=== PATIENT | female | born 1990 | race Caucasian/White ===

== ENCOUNTER → 2016-06-27 | Outpatient (REF) | payer OTHER ==
[2016-06-27 15:47] LABS: PERCENT SATURATION 14.7 % (13.2-37.4); TOTAL IRON BINDING CAPACITY 339 UG/DL (250-450)
[2016-06-27 22:00] LABS: CONTROL LINE MONO INT CTR LINE PRESENT
[2016-06-30 00:07] LABS: ENDOMYSIAL ABY IgA Negative (Negative)
== END | disposition home or self-care (01) ==
LOC: M LAB REF 12:02
PROVIDERS: ATTEND Internal Medicine
DX: R19.5 Other fecal abnormalities (principal); J03.90 Acute tonsillitis, unspecified; R59.0 Localized enlarged lymph nodes

== ENCOUNTER 2016-09-06 14:50 | Emergency (ER) | payer OTHER ==
[~2016-09-06] VITALS: Ht 157.5 cm; Wt 70.3 kg
[2016-09-06 14:50] VITALS: BP 138/86
[2016-09-06] MEDS ORDERED: NAPROXEN 250 MG TAB PO ONE (15:15)
[2016-09-06] MEDS ORDERED: CEPHALEXIN 500 MG CAP PO ONE (15:15)
[2016-09-06] MEDS ORDERED: NAPR500T PO (15:16)
[2016-09-06] MEDS ORDERED: KEFL500C7 PO (15:16)
[2016-09-06] MEDS ORDERED: BACITRACIN OINT 30GM TOP ONE (15:30)
== END 2016-09-06 15:43 | disposition home or self-care (01) ==
LOC: M ED 15:24
DX: S61.011A Laceration without foreign body of right thumb without damage to nail, initial encounter (principal); W45.8XXA Other foreign body or object entering through skin, initial encounter; Y92.018 Other place in single-family (private) house as the place of occurrence of the external cause; Y93.G1 Activity, food preparation and clean up; Y99.8 Other external cause status

== ENCOUNTER → 2016-11-28 | Outpatient (CLI) | payer OTHER ==
[~2016-11-28] VITALS: Ht 157.5 cm; Wt 70.8 kg
[~2016-11-28] MED LIST: KEFL500C17 PO; NAPR500T PO; NS 1,000 ML IV ONE
--- NOTE | 2016-11-28 10:58 | ROOR ---
Patient Name: Delmis Ayon Procedure Date: 11/28/2016 10:37 AM Date of : 1990 Age: 26 Room: [facility] Gender: Female Note Status: Finalized Procedure: Total Colonoscopy to Cecum + ileoscopy Indications: Rectal bleeding, Change in bowel habits Providers: Gregorio Luque MD Referring MD: Love Bah DO Requesting Provider: Medicines: Monitored Anesthesia Care Complications: No immediate complications. Procedure: Pre-Anesthesia Assessment: - The heart rate, respiratory rate, oxygen saturations, blood pressure, adequacy of pulmonary ventilation, and response to care were monitored throughout the procedure. The Colonoscope was introduced through the anus and advanced to the cecum, identified by appendiceal orifice and ileocecal valve. The colonoscopy was performed without difficulty. The patient tolerated the procedure well. The quality of the bowel preparation was excellent. Findings: The perianal and digital rectal examinations were normal. Non-bleeding internal hemorrhoids were found during retroflexion. The hemorrhoids were small and Grade I (internal hemorrhoids that do not prolapse). No other significant abnormalities were identified in a careful examination of the remainder of the colon. The terminal ileum appeared normal. The exam was otherwise without abnormality. Impression: - Non-bleeding internal hemorrhoids. - The examined portion of the ileum was normal. - The examination was otherwise normal. - No specimens collected. - The exam was otherwise normal to the cecum. Recommendation: - Patient has a contact number available for emergencies. The signs and symptoms of potential delayed complications were discussed with the patient. Return to normal activities tomorrow. Written discharge instructions were provided to the patient. - High fiber diet. - Discharge patient to home. - Continue present medications. - Repeat colonoscopy at age 52 for screening purposes. - Return to referring physician. - The findings and recommendations were discussed with the patient's family. Gregorio Luque MD Gregorio Luque MD 11/28/2016 10:58:07 AM This report has been signed electronically. Number of Addenda: 0 Note Initiated On: 11/28/2016 10:37 AM Estimated Blood Loss: Estimated blood loss: none.
[2016-11-28 11:20] VITALS: BP 139/86
== END ==
LOC: M OPP 09:17
PROVIDERS: ATTEND Internal Medicine Gastroenterology
DX: K62.5 Hemorrhage of anus and rectum (principal); R19.4 Change in bowel habit; K64.0 First degree hemorrhoids; D64.9 Anemia, unspecified; G44.209 Tension-type headache, unspecified, not intractable; Z79.899 Other long term (current) drug therapy; Z91.018 Allergy to other foods

== ENCOUNTER → 2017-07-13 | Outpatient (REF) | payer OTHER ==
[2017-07-13 18:15] LABS: CONTROL LINE HCG INT CTR LINE PRESENT; HCG, SERUM QUALITATIVE NEGATIVE (NEGATIVE)
== END ==
LOC: M LAB REF 17:24
DX: R63.5 Abnormal weight gain (principal); N91.2 Amenorrhea, unspecified
CPT/HCPCS: 84703

== ENCOUNTER → 2017-07-17 | Outpatient (REF) | payer OTHER ==
[2017-07-17 14:29] LABS: CONTROL LINE HCG INT CTR LINE PRESENT; HCG, SERUM QUALITATIVE POSITIVE (NEGATIVE)
[2017-07-17 16:21] LABS: HCG, SERUM QUANTITATIVE 80 MIU/ML
== END ==
LOC: M LAB REF 13:51
DX: Z32.01 Encounter for pregnancy test, result positive (principal)

== ENCOUNTER → 2017-09-11 | Outpatient (REF) | payer OTHER ==
[2017-09-11 20:12] LABS: CHLAMYDIA DNA AMPLIFICATION NEGATIVE (NEGATIVE); GC DNA AMPLIFICATION NEGATIVE (NEGATIVE)
== END ==
LOC: M LAB REF 17:02
DX: Z34.81 Encounter for supervision of other normal pregnancy, first trimester (principal); Z3A.00 Weeks of gestation of pregnancy not specified
CPT/HCPCS: 87086

== ENCOUNTER → 2017-11-10 | Outpatient (CLI) | payer OTHER | LOC: M RAD 09:51 | DX: Z34.82 Encounter for supervision of other normal pregnancy, second trimester (principal) | CPT/HCPCS: 76811 ==

== ENCOUNTER → 2017-11-27 | Outpatient (CLI) | payer OTHER | LOC: M RAD 07:31 | DX: Z34.82 Encounter for supervision of other normal pregnancy, second trimester (principal); Z36.89 Encounter for other specified antenatal screening; Z3A.22 22 weeks gestation of pregnancy | CPT/HCPCS: 76816 ==